=== PATIENT | male | born 1990 | race Caucasian/White ===

== ENCOUNTER 2016-09-27 11:03 | Emergency (ER) | payer OTHER ==
[~2016-09-27] VITALS: Ht 175.3 cm; Wt 95.3 kg
--- NOTE | 2016-09-27 11:24 | NUR ---
Pt was installing keyboard tray on desk but mount failed and tray fell on pt. Pt c/o about 1 cm lac on upper lip, not bleeding, 1/10 pain. Pt denies LOC, LOWERY, dizziness, no other complaints, no distress noted.
[2016-09-27] MEDS ORDERED: LIDOCAINE 1%-EPI 1:100,000 20 ML VIAL TP ONE (11:45)
[2016-09-27] MEDS ORDERED: LIDOCAINE 1%-EPI 1:100,000 20 ML VIAL ONE (11:50)
[2016-09-27] MEDS ORDERED: TDAP DIPH,PERTUSS,TET VAC/PF 0.5 ML DISP.SYRIN IM ONE ×2 (12:15→12:23)
[2016-09-27] MEDS ORDERED: NEOMY/BACITRA/POLYMYXIN B OINT UD PACKET TP ONE (12:15)
--- NOTE | 2016-09-27 12:21 | NUR ---
wound cleaned w/H2O2. applied A/Bx ointment, admin dTap Gave pt d/c instructions, verbalized understanding. [id number] 11/02/18
== END 2016-09-27 12:25 | disposition home or self-care (01) ==
LOC: ER 11:03
DX: S01.511A Laceration without foreign body of lip, initial encounter (principal); F17.200 Nicotine dependence, unspecified, uncomplicated; W45.8XXA Other foreign body or object entering through skin, initial encounter; Y93.89 Activity, other specified; Y99.8 Other external cause status; Y92.89 Other specified places as the place of occurrence of the external cause
CPT/HCPCS: 12011; 90471; 90715; 99283; A4663; J3490